=== PATIENT | male | born 1975 | race Hispanic/Latino ===

== ENCOUNTER 2018-08-20 15:57 | Inpatient (IN) | payer MEDICAID ==
[2018-08-20 17:26] LABS: URINE BILIRUBIN NEGATIVE (NEGATIVE); URINE BLOOD NEGATIVE (NEGATIVE); URINE CLARITY CLEAR (Clear); URINE COLOR YELLOW (YELLOW); URINE GLUCOSE (UA) NEG (NEGATIVE); URINE LEUKOCYTE ESTERASE NEG Leu/uL (Negative); URINE PROTEIN NEGATIVE (NEGATIVE); URINE UROBILINOGEN 0.2-1.0 mg/dL (0.2-1.0)
[2018-08-20 17:33] LABS: BASO # 0.1 K/uL (0.0-0.2); BASO % 0.6 % (0.0-2.0); EOS # 0.4 K/uL (0.0-0.7); EOS % 4.6 % (0.0-4.0); LYMPH # 2.2 K/uL (1.0-4.3); LYMPH % 25.4 % (20.0-40.0); MEAN CELL VOLUME 94.8 fl (80.0-94.0); MEAN CORPUSCULAR HEMOGLOBIN 32.4 pg (27.0-31.0); MEAN CORPUSCULAR HGB CONC 34.2 g/dL (33.0-37.0); MEAN PLATELET VOLUME 7.8 fl (7.2-11.7); MONO % 22.9 % (0.0-10.0); NEUT % 46.5 % (50.0-75.0); NRBC % 0.1 % (0.0-0.0); RBC 4.03 Mil/uL (4.40-5.90); RED CELL DISTRIBUTION WIDTH 13.9 % (11.5-14.5); WHITE BLOOD COUNT 8.6 K/uL (4.8-10.8)
[2018-08-20 17:36] LABS: PROTHROMBIN TIME 11.7 Seconds (9.8-13.1)
[2018-08-20] MEDS ORDERED: Piperacillin/Tazobact 4.5 GM in Sodium Chloride 0.9% 100 ML IVPB STA (17:38)
[2018-08-20 17:39] LABS: PARTIAL THROMBOPLASTIN TIME 31.2 Seconds (25.6-37.1)
--- NOTE | 2018-08-20 17:43 | ED PDOC ---
HPI: Male Pain Time Seen by Provider: 08/20/18 16:52 Chief Complaint (Nursing): Male Genitourinary Chief Complaint (Provider): sent to ED for abscess found as outpt Current Symptoms Are (Timing): Still Present Severity: Moderate Quality Of Discomfort: Sharp Associated Symptoms: denies: Fever, Chills Additional Complaint(s): 42yo male c/o pain under his scrotum/ perineum ongoing for about a week and worsening. Saw his urologist Dr Faria from [place] who wrote Rx for CT abd pelvis, performed today as outpatient at [facility] and revealed a supraperineal abscess with gas bubbles. Patient denies fever, weakness, pain w/ urination or defecation. States had abscess to scrotum several years ago but this feels somewhat different. Past Medical History Reviewed: Historical Data, Nursing Documentation, Vital Signs Vital Signs: Last Vital Signs Temp 97.6 F 08/20/18 16:25 Pulse 77 08/20/18 16:25 Resp 18 08/20/18 16:25 BP 121/74 08/20/18 16:25 Pulse Ox 99 08/20/18 16:25 - Medical History PMH: Asthma, Bipolar Disorder, Seizures Denies: Diabetes, Hepatitis, HIV, HTN, Chronic Kidney Disease, Sexually Transmitted Disease Other PMH: partial seizures, bipolar - Surgical History Other surgeries: scrotal abscess - Family History Family History: States: Unknown Family Hx - Living Arrangements Living Arrangements: With Family - Social History Current smoker - smoking cessation education provided: No - Home Medications Home Medications: Ambulatory Orders Medication Instructions Recorded Amoxicillin/Clavulanate [Augmentin 1 tab PO Q12 #20 tab 08/23/18 875 MG-125 MG] RX: Albuterol Sulfate [Ventolin 2 puff IH Q6 PRN #1 hfa.aer.ad 08/23/18 Hfa] RX: Benztropine [Cogentin] 1 mg PO HS #30 tab 08/23/18 RX: Divalproex [Depakote DR] 2,000 mg PO QPM #30 tcp 08/23/18 RX: Ergocalciferol [Drisdol 50,000 50,000 unit PO SUN #8 cap 08/23/18 Intl Units Cap] RX: Fluticasone/Salmeterol 100/50 1 puff IH Q12 #1 puff 08/23/18 [Advair Diskus 100/50] RX: Meloxicam [Mobic] 7.5 mg PO QPM #14 tab 08/23/18 RX: Montelukast [Singulair] 10 mg PO QPM #30 tab 08/23/18 RX: Risperidone [Risperdal] 6 mg PO HS #30 tablet 08/23/18 - Allergies Allergies/Adverse Reactions: Allergies Allergy/AdvReac Type Severity Reaction Status Date / Time No Known Allergies Allergy Verified 08/20/18 16:24 Review of Systems ROS Statement: Except As Marked, All Systems Reviewed And Found Negative Constitutional: Negative for: Fever, Chills Respiratory: Negative for: Cough, Shortness of Breath Gastrointestinal: Positive for: Rectal Pain. Negative for: Vomiting, Abdominal Pain Genitourinary Male: Positive for: Scrotal Pain, Penile Pain. Negative for: Dysuria, Frequency, Hematuria, Penile Discharge Musculoskeletal: Negative for: Neck Pain, Back Pain Skin: Negative for: Rash Neurological: Negative for: Weakness, Numbness, Headache, Dizziness Psych: Negative for: Psychosis, Suicidal ideation Physical Exam - Reviewed Nursing Documentation Reviewed: Yes Vital Signs Reviewed: Yes - Physical Exam Appears: Positive for: Well, Non-toxic, No Acute Distress Head Exam: Positive for: ATRAUMATIC, NORMAL INSPECTION, NORMOCEPHALIC Skin: Positive for: Normal Color, Warm, DRY Eye Exam: Positive for: EOMI, Normal appearance, PERRL ENT: Positive for: Normal ENT Inspection Neck: Positive for: Normal, Painless ROM Cardiovascular/Chest: Positive for: Regular Rate, Rhythm Respiratory: Positive for: CNT, Normal Breath Sounds Gastrointestinal/Abdominal: Positive for: Normal Exam, Soft Male Genital Exam: Positive for: other (perineum +indurated tender mass c/w abscess minimal erythema extending to base scrotum) Back: Positive for: Normal Inspection Extremity: Positive for: Normal ROM Neurologic/Psych: Positive for: Alert, Oriented - Laboratory Results Result Diagrams: 08/22/18 05:55 08/22/18 05:55 - ECG O2 Sat by Pulse Oximetry: 99 Medical Decision Making Medical Decision Making: Discussed w surgery resident for consult Initiate Abx, blood cultures Does not meet SIRS critera based on vitals/presentation. Admit Dr Cross wind operations supervisor medicine CT: Accession No. : [id number] Patient Name / ID : OMAIRA DAVIS S / [id number] Exam Date : 08/20/2018 07:53:07 ( Approved ) Study Comment : Sex / Age : M / 42Y Creator : Govind Hayes MD Dictator : Govind Hayes MD Magnetic Prospecting Supervisor : Computer Typesetter Keyliner : Govind Hayes MD Approver2 : Report Date : 08/20/2018 12:59:51 My Comment : * Date of service: 08/20/2018 PROCEDURE: CT Abdomen and Pelvis with and without intravenous contrast HISTORY: PELVIC PAIN COMPARISON: None. TECHNIQUE: Axial images of the abdomen were obtained in the pre contrast, portal venous and delayed phases of enhancement. Coronal and sagittal reformats were generated. Contrast dose: 99 cc Omnipaque 300 Radiation dose: Total exam DLP = 1841.88 mGy-cm. This CT exam was performed using one or more of the following dose reduction techniques: Automated exposure control, adjustment of the mA and/or kV according to patient size, and/or use of iterative reconstruction technique. FINDINGS: LOWER THORAX: Unremarkable. LIVER: Normal size, contour and attenuation. In the left lobe of the liver there are 2 nonspecific small rounded low-attenuation lesions, 1 in the lateral segment measuring 1.2 cm diameter and 1 in the medial segment measuring 9 mm. Further evaluation with multiphasic contrast-enhanced CT or gadolinium enhanced magnetic resonance imaging is advised. No biliary dilatation GALLBLADDER AND BILE DUCTS: Unremarkable. PANCREAS: Unremarkable. No gross lesion or ductal dilatation. SPLEEN: Unremarkable. ADRENALS: Unremarkable. No mass. KIDNEYS AND URETERS: There are 2 very small nonobstructing right renal calculi, 2-3 mm each, in the mid and lower pole of the right kidney. No mass. No hydronephrosis. VASCULATURE: Unremarkable. No aortic aneurysm. No aortic atherosclerotic calcification or mural plaque present. BOWEL: Unremarkable. No obstruction. No gross mural thickening. APPENDIX: Not identified. No secondary findings to suggest acute PERITONEUM: Appendicitis. LYMPH NODES: Unremarkable. No enlarged lymph nodes. BLADDER: Mildly thickened bladder wall, nonspecific. This may be due to inadequate distention. Correlate with urinalysis to rule out cystitis. REPRODUCTIVE: Normal prostate. BONES: No acute fracture. OTHER FINDINGS: There is an abscess beneath the base of the penis, in the midline extending left parasagittal E in its most inferior extent. It is somewhat irregularly shaped. It measures approximately 2.0 x 3.7 x 4.6 cm and contains fluid and few gas bubbles. This does not clearly extend to the anal rectal complex. It is situated just above the median [place]. IMPRESSION: Supra perineal abscess, 4.6 cm greatest dimension. This is in the midline extending from anterior to the anal rectal complex along the base of the penis and inferiorly to the median [place]. Surgical evaluation is advised. Several nonspecific small low-attenuation hepatic masses. Evaluation with multiphasic contrast-enhanced CT or gadolinium enhanced magnetic resonance imaging is advised. Two very small nonobstructing right renal calculi are noted. No other acute abnormality. The findings were discussed by telephone with Dr. Faria at 1 p.m. on 08/20/2018. -------- admitted, antibiotics initiated and surgery is consulted Disposition - Clinical Impression Clinical Impression: Perineal abscess - Patient ED Disposition Is Patient to be Admitted: Yes Counseled Patient/Family Regarding: Studies Performed, Diagnosis - Disposition Disposition Time: 18:30 Condition: GOOD - Pt Status Changed To: Hospital Disposition Of: Inpatient - Admit Certification Admit to Inpatient:: After my assessment, the patient will require hospitalization for at least two midnights. This is because of the severity of symptoms shown, intensity of services needed, and/or the medical risk in this patient being treated as an outpatient. - POA Present On Arrival: None
[2018-08-20 17:44] LABS: PLATELET COUNT 138 K/uL (130-400)
[2018-08-20 17:45] LABS: ALB/GLOB RATIO 1.1 (1.0-2.1); ALBUMIN 3.6 g/dL (3.5-5.0); ALT/SGPT 22 U/L (21-72); AST/SGOT 19 U/L (17-59); BLOOD UREA NITROGEN 12 mg/dl (9-20); GFR NON-AFRICAN AMERICAN > 60
[2018-08-20] MEDS ORDERED: Sodium Chloride 0.9% 1,000 ML IV STA (17:46)
[2018-08-20] MEDS ORDERED: Vancomycin 1 g Inj ONE (18:00)
[2018-08-20 18:36] LABS: BASOPHIL 1 % (0-2); EOSINOPHIL 4 % (0-7); LYMPHOCYTE 28 % (20-50); MONOCYTE 19 % (0-10); MYELOCYTE 1 % (0-0); NEUTROPHIL 47 % (42-75); TOTAL CELLS COUNTED 100
[2018-08-20 18:37] LABS: PLATELET ESTIMATE NORMAL (NORMAL)
[2018-08-20 18:40] LABS: ANISOCYTOSIS SLIGHT
[2018-08-20] MEDS ORDERED: VANCOMYCIN IVPB SCH (19:45)
[2018-08-20] MEDS ORDERED: PED IVPB SCH (19:45)
--- NOTE | 2018-08-20 20:01 | CP.PCM.CON ---
History of Present Illness - History of Present Illness History of Present Illness: General Surgery: Dr Samayoa PT is a 42M with hx of Bipolar disorder and new diagnosis of seizure disorder (last one 2 days ago). Presents with 1 week history of scrotal and perineal pain. Outside urologist (Dr Giana Saha) sent pt for CT scan today which [id number] 4.6cm abscess from anterior anus to base of the scrotum. PT reports progressive swelling and tenderness, but denies fevers, chlls, nausea, vomiting, dysuria, fecal or urinary incontinence. HAs remote history of single scrotal abscess in past which required I&D, packing and prolonged wound care. Currently reports pain is well controlled. PMH: BPD, unknown seizure disorder PSH: I&D of scrotum NKDA Review of Systems - Review of Systems All systems: reviewed and no additional remarkable complaints except (as per hpi) Past Patient History - Infectious Disease Hx of Infectious Diseases: None - Tetanus Immunizations Tetanus Immunization: Unknown - Past Medical History & Family History Past Medical History?: Yes - Past Social History Smoking Status: Light Smoker < 10 Cigarettes Daily - CARDIAC Hx Hypertension: No - PULMONARY Hx Asthma: Yes - NEUROLOGICAL Hx Seizures: Yes - HEENT Hx HEENT Problems: No - RENAL Hx Chronic Kidney Disease: No - ENDOCRINE/METABOLIC Hx Endocrine Disorders: No - HEMATOLOGICAL/ONCOLOGICAL Hx Human Immunodeficiency Virus (HIV): No - INTEGUMENTARY Hx Dermatological Problems: No - MUSCULOSKELETAL/RHEUMATOLOGICAL Hx Musculoskeletal Disorders: No - GASTROINTESTINAL Hx Gastrointestinal Disorders: (unable to get info) - GENITOURINARY/GYNECOLOGICAL Hx Sexually Transmitted Disorders: No - PSYCHIATRIC Hx Bipolar Disorder: Yes - SURGICAL HISTORY Hx Surgeries: No - ANESTHESIA Hx Anesthesia: No Meds Allergies/Adverse Reactions: Allergies Allergy/AdvReac Type Severity Reaction Status Date / Time No Known Allergies Allergy Verified 08/20/18 16:24 - Medications Medications: Current Medications Piperacillin Sod/Tazobactam (Sod 3.375 gm/ Sodium Chloride) 100 mls @ 100 mls/hr IVPB Q12 MAI; Protocol Vancomycin HCl 1 gm/ Sodium (Chloride) 250 mls @ 166.667 mls/hr IVPB DAILY MAI; Protocol Morphine Sulfate (Morphine) 2 mg IVP Q4 PRN PRN Reason: Pain, Mild (1-3) Physical Exam - Constitutional Appears: Non-toxic, No Acute Distress - Head Exam Head Exam: NORMOCEPHALIC - Eye Exam Eye Exam: Normal appearance - Respiratory Exam Respiratory Exam: absent: Respiratory Distress - Cardiovascular Exam Cardiovascular Exam: REGULAR RHYTHM. absent: Tachycardia - GI/Abdominal Exam GI & Abdominal Exam: Soft. absent: Distended, Firm, Tenderness - Exam Additional comments: left testicle swollen, erythematous, fluctuant, palpable abscess at pass, tender to manipulation, extends to anterior anus no evidence of crepitus, necrosis, no sign of fourniers - Extremities Exam Extremities exam: Negative for: pedal edema - Neurological Exam Neurological exam: Alert, Oriented x3 - Psychiatric Exam Psychiatric exam: Normal Affect, Normal Mood - Skin Skin Exam: Normal Color, Warm Results - Vital Signs Recent Vital Signs: Last Vital Signs Temp 97.6 F 08/20/18 16:25 Pulse 77 08/20/18 16:25 Resp 18 08/20/18 16:25 BP 121/74 08/20/18 16:25 Pulse Ox 99 08/20/18 17:46 - Labs Result Diagrams: 08/20/18 17:27 08/20/18 17:27 Labs: Laboratory Results - last 24 hr 08/20/18 08/20/18 08/20/18 17:08 17:27 17:27 WBC 8.6 RBC 4.03 L Hgb 13.0 D Hct 38.2 MCV 94.8 H MCH 32.4 H MCHC 34.2 RDW 13.9 Plt Count 138 MPV 7.8 Neut % (Auto) 46.5 L Lymph % (Auto) 25.4 [place] % (Auto) 22.9 H Eos % (Auto) 4.6 H Baso % (Auto) 0.6 Neut # (Auto) 4.0 Lymph # (Auto) 2.2 [place] # (Auto) 2.0 H Eos # (Auto) 0.4 Baso # (Auto) 0.1 Neutrophils % (Manual) 47 Lymphocytes % (Manual) 28 Monocytes % (Manual) 19 H Eosinophils % (Manual) 4 Basophils % (Manual) 1 Myelocytes % 1 H Platelet Estimate Normal Anisocytosis (manual) Slight Macrocytosis (manual) Slight PT INR APTT Sodium 137 Potassium 4.7 Chloride 99 Carbon Dioxide 30 Anion Gap 13 BUN 12 Creatinine 0.9 Est GFR ( Amer) > 60 Est GFR (Non-Af Amer) > 60 Random Glucose 130 H Calcium 9.0 Total Bilirubin 0.3 AST 19 ALT 22 Alkaline Phosphatase 48 Total Protein 6.9 Albumin 3.6 Globulin 3.3 Albumin/Globulin Ratio 1.1 Urine Color Yellow Urine Clarity Clear Urine pH 6.0 Ur Specific [place] 1.016 Urine Protein Negative Urine Glucose (UA) Neg Urine Ketones Negative Urine Blood Negative Urine Nitrate Negative Urine Bilirubin Negative Urine Urobilinogen 0.2-1.0 Ur Leukocyte Esterase Neg Urine RBC (Auto) < 1 Urine Microscopic WBC < 1 08/20/18 17:27 WBC RBC Hgb Hct MCV MCH MCHC RDW Plt Count MPV Neut % (Auto) Lymph % (Auto) [place] % (Auto) Eos % (Auto) Baso % (Auto) Neut # (Auto) Lymph # (Auto) [place] # (Auto) Eos # (Auto) Baso # (Auto) Neutrophils % (Manual) Lymphocytes % (Manual) Monocytes % (Manual) Eosinophils % (Manual) Basophils % (Manual) Myelocytes % Platelet Estimate Anisocytosis (manual) Macrocytosis (manual) PT 11.7 INR 1.0 APTT 31.2 Sodium Potassium Chloride Carbon Dioxide Anion Gap BUN Creatinine Est GFR ( Amer) Est GFR (Non-Af Amer) Random Glucose Calcium Total Bilirubin AST ALT Alkaline Phosphatase Total Protein Albumin Globulin Albumin/Globulin Ratio Urine Color Urine Clarity Urine pH Ur Specific [place] Urine Protein Urine Glucose (UA) Urine Ketones Urine Blood Urine Nitrate Urine Bilirubin Urine Urobilinogen Ur Leukocyte Esterase Urine RBC (Auto) Urine Microscopic WBC Assessment & Plan - Assessment and Plan (Free Text) Assessment: 42M with scrotal/perineal abscess Plan: admit to medicine mgmt of comorbidities by primary team NPO @ [facility] IV Abx - vanc/zosyn will plan for I&D in OR tomorrow - time pending d/w Dr Yao Bolton, PGY4
[2018-08-20] MEDS: Piperacillin/Tazobact 3.375 GM in Sodium Chloride 0.9% 100 ML IVPB SCH ×2 (21:00→22:33)
[2018-08-20] MEDS ORDERED: Divalproex 500 mg DR(BID formulation) PO STA (21:07)
[2018-08-21] MEDS: Lactated Ringer's 1,000 ML IV SCH ×2 (00:17→19:06)
[2018-08-21] MEDS ORDERED: Albuterol-Ipratrop 3 mg / 0.5 (3 ml) UD INH STA (00:27)
[2018-08-21] MEDS ORDERED: Albuterol HFA 90 mcg/actuation (8 g) IH PRN (00:53)
[2018-08-21] MEDS: Piperacillin/Tazobact 3.375 GM in Sodium Chloride 0.9% 100 ML IVPB SCH ×4 (01:55→20:20)
--- NOTE | 2018-08-21 06:06 | CARD ---
APPROVED REPORT Date of service: 08/20/2018 EKG Measurement Heart [id number] <Conclusion> Normal sinus rhythm Normal ECG
--- NOTE | 2018-08-21 07:58 | CP.PCM.HP ---
<Eloise Castillo - Last Filed: 08/21/18 08:28> History of Present Illness - History of Present Illness History of Present Illness: 42 yo M with hx of asthma, bipolar disorder, newly diagnosed seizure disorder, admitted to [facility] due to perineal abscess. Pt had 1 week history scrotal and perineal pain, saw his outside urologist Dr. Faria at [place], who sent him for CT. CT showed 4.6 cm abscess from anterior anus to base of scrotum, surgical consultation was advised and pt was admitted. Pt states he had similar episode several years ago. When seen this morning with Dr. Cross, pt reported that using warm compress overnight has been somewhat helpful. ROS: Pain and swelling as above, no fevers, chills, chest pain, issues breathing, issues with urination or stooling, nausea, vomiting In ED, blood cultures taken, received zosyn and vancomycin. EKG showed NSR at 69 bpm. Pt seen this morning PT reports progressive swelling and tenderness, but denies fevers, chlls, nausea, vomiting, dysuria, fecal or urinary incontinence. HAs remote history of single scrotal abscess in past which required I&D, packing and prolonged wound care. Currently reports pain is well controlled. Past Med hx: Bipolar d/o, unknown seizure disorder, asthma Past Surg hx: I&D of scrotum Fam hx: noncontributory Meds: as per med rec NKDA Present on Admission - Present on Admission Any Indicators Present on Admission: No Review of Systems - Review of Systems Review of Systems: as in HPI Past Patient History - Infectious Disease Hx of Infectious Diseases: None - Tetanus Immunizations Tetanus Immunization: Unknown - Past Medical History & Family History Past Medical History?: Yes - Past Social History Smoking Status: Never Smoked - CARDIAC Hx Cardiac Disorders: No - PULMONARY Hx Respiratory Disorders: Yes Hx Asthma: Yes - NEUROLOGICAL Hx Neurological Disorder: Yes Hx Seizures: Yes (Partial Seizures) - HEENT Hx HEENT Problems: No - RENAL Hx Chronic Kidney Disease: No - ENDOCRINE/METABOLIC Hx Endocrine Disorders: No - HEMATOLOGICAL/ONCOLOGICAL Hx Blood Disorders: No - INTEGUMENTARY Hx Dermatological Problems: No - MUSCULOSKELETAL/RHEUMATOLOGICAL Hx Musculoskeletal Disorders: No Hx Falls: No - GASTROINTESTINAL Hx Gastrointestinal Disorders: No - GENITOURINARY/GYNECOLOGICAL Hx Genitourinary Disorders: No - PSYCHIATRIC Hx Psychophysiologic Disorder: Yes Hx Bipolar Disorder: Yes Hx Substance Use: No - SURGICAL HISTORY Hx Surgeries: Yes Other/Comment: Scrotal Abscess - 2 yrs ago - ANESTHESIA Hx Anesthesia: Yes Hx Anesthesia Reactions: No Hx Malignant Hyperthermia: No Has any member of the family had a problem w/ anesthesia?: No Meds Allergies/Adverse Reactions: Allergies Allergy/AdvReac Type Severity Reaction Status Date / Time No Known Allergies Allergy Verified 08/20/18 16:24 Physical Exam - Constitutional Appears: Non-toxic - Head Exam Head Exam: NORMAL INSPECTION - Eye Exam Eye Exam: Normal appearance - ENT Exam ENT Exam: Mucous Membranes Moist - Respiratory Exam Respiratory Exam: Clear to Auscultation Bilateral, NORMAL BREATHING PATTERN - Cardiovascular Exam Cardiovascular Exam: REGULAR RHYTHM - GI/Abdominal Exam GI & Abdominal Exam: Soft - Exam Exam: Scrotal Swelling (perineum tender, some erythema at base of scrotum) Additional comments: examined w/ Dr. Cross - Extremities Exam Extremities exam: Negative for: calf tenderness - Neurological Exam Neurological exam: Alert - Skin Skin Exam: Warm Additional comments: as above Results - Vital Signs Recent Vital Signs: Last Vital Signs Temp 98.6 F 08/21/18 00:49 Pulse 67 08/21/18 00:49 Resp 20 08/21/18 00:49 BP 133/81 08/21/18 00:49 Pulse Ox 98 08/21/18 00:49 - Labs Result Diagrams: 08/20/18 17:27 08/20/18 17:27 Labs: Laboratory Results - last 24 hr 08/20/18 08/20/18 08/20/18 17:08 17:27 17:27 WBC 8.6 RBC 4.03 L Hgb 13.0 D Hct 38.2 MCV 94.8 H MCH 32.4 H MCHC 34.2 RDW 13.9 Plt Count 138 MPV 7.8 Neut % (Auto) 46.5 L Lymph % (Auto) 25.4 [place] % (Auto) 22.9 H Eos % (Auto) 4.6 H Baso % (Auto) 0.6 Neut # (Auto) 4.0 Lymph # (Auto) 2.2 [place] # (Auto) 2.0 H Eos # (Auto) 0.4 Baso # (Auto) 0.1 Neutrophils % (Manual) 47 Lymphocytes % (Manual) 28 Monocytes % (Manual) 19 H Eosinophils % (Manual) 4 Basophils % (Manual) 1 Myelocytes % 1 H Platelet Estimate Normal Anisocytosis (manual) Slight Macrocytosis (manual) Slight PT INR APTT Sodium 137 Potassium 4.7 Chloride 99 Carbon Dioxide 30 Anion Gap 13 BUN 12 Creatinine 0.9 Est GFR ( Amer) > 60 Est GFR (Non-Af Amer) > 60 Random Glucose 130 H Calcium 9.0 Total Bilirubin 0.3 AST 19 ALT 22 Alkaline Phosphatase 48 Total Protein 6.9 Albumin 3.6 Globulin 3.3 Albumin/Globulin Ratio 1.1 Urine Color Yellow Urine Clarity Clear Urine pH 6.0 Ur Specific [place] 1.016 Urine Protein Negative Urine Glucose (UA) Neg Urine Ketones Negative Urine Blood Negative Urine Nitrate Negative Urine Bilirubin Negative Urine Urobilinogen 0.2-1.0 Ur Leukocyte Esterase Neg Urine RBC (Auto) < 1 Urine Microscopic WBC < 1 08/20/18 17:27 WBC RBC Hgb Hct MCV MCH MCHC RDW Plt Count MPV Neut % (Auto) Lymph % (Auto) [place] % (Auto) Eos % (Auto) Baso % (Auto) Neut # (Auto) Lymph # (Auto) [place] # (Auto) Eos # (Auto) Baso # (Auto) Neutrophils % (Manual) Lymphocytes % (Manual) Monocytes % (Manual) Eosinophils % (Manual) Basophils % (Manual) Myelocytes % Platelet Estimate Anisocytosis (manual) Macrocytosis (manual) PT 11.7 INR 1.0 APTT 31.2 Sodium Potassium Chloride Carbon Dioxide Anion Gap BUN Creatinine Est GFR ( Amer) Est GFR (Non-Af Amer) Random Glucose Calcium Total Bilirubin AST ALT Alkaline Phosphatase Total Protein Albumin Globulin Albumin/Globulin Ratio Urine Color Urine Clarity Urine pH Ur Specific [place] Urine Protein Urine Glucose (UA) Urine Ketones Urine Blood Urine Nitrate Urine Bilirubin Urine Urobilinogen Ur Leukocyte Esterase Urine RBC (Auto) Urine Microscopic WBC Assessment & Plan - Assessment and Plan (Free Text) Assessment: 42 yo M with hx asthma, bipolar d/o, seizure disorder, with 1 week swelling perineal/scrotal abscess seen on CT. Plan: - Admitted to med surg - Surgery consulted- recs appreciated; planned for OR today for I&D - Analgesia w/ morphine - Continue with vanco/zosyn - Continue with warm compresses - Continue IV fluids - Follow up results of blood cultures; no leukocytosis, continue to monitor - Resume home medication for seizure disorder (Depakote QPM) - Asthma well controlled; no wheezing or shortness of breath. Resume home meds for asthma (Advair, Montelukast, Albuterol); duonebs PRN - Resume home meds for bipolar d/o (risperdal) - NPO - SCDs Pt seen/examined with Dr. Cross. <Harry Cross - Last Filed: 08/21/18 10:34> Results - Vital Signs Recent Vital Signs: Last Vital Signs Temp 97.9 F 08/21/18 08:32 Pulse 65 08/21/18 08:32 Resp 18 08/21/18 08:32 BP 120/70 08/21/18 08:32 Pulse Ox 95 08/21/18 08:32 - Labs Result Diagrams: 08/20/18 17:27 08/20/18 17:27 Labs: Laboratory Results - last 24 hr 08/20/18 08/20/18 08/20/18 17:08 17:27 17:27 WBC 8.6 RBC 4.03 L Hgb 13.0 D Hct 38.2 MCV 94.8 H MCH 32.4 H MCHC 34.2 RDW 13.9 Plt Count 138 MPV 7.8 Neut % (Auto) 46.5 L Lymph % (Auto) 25.4 [place] % (Auto) 22.9 H Eos % (Auto) 4.6 H Baso % (Auto) 0.6 Neut # (Auto) 4.0 Lymph # (Auto) 2.2 [place] # (Auto) 2.0 H Eos # (Auto) 0.4 Baso # (Auto) 0.1 Neutrophils % (Manual) 47 Lymphocytes % (Manual) 28 Monocytes % (Manual) 19 H Eosinophils % (Manual) 4 Basophils % (Manual) 1 Myelocytes % 1 H Platelet Estimate Normal Anisocytosis (manual) Slight Macrocytosis (manual) Slight PT INR APTT Sodium 137 Potassium 4.7 Chloride 99 Carbon Dioxide 30 Anion Gap 13 BUN 12 Creatinine 0.9 Est GFR ( Amer) > 60 Est GFR (Non-Af Amer) > 60 Random Glucose 130 H Calcium 9.0 Total Bilirubin 0.3 AST 19 ALT 22 Alkaline Phosphatase 48 Total Protein 6.9 Albumin 3.6 Globulin 3.3 Albumin/Globulin Ratio 1.1 Urine Color Yellow Urine Clarity Clear Urine pH 6.0 Ur Specific [place] 1.016 Urine Protein Negative Urine Glucose (UA) Neg Urine Ketones Negative Urine Blood Negative Urine Nitrate Negative Urine Bilirubin Negative Urine Urobilinogen 0.2-1.0 Ur Leukocyte Esterase Neg Urine RBC (Auto) < 1 Urine Microscopic WBC < 1 08/20/18 17:27 WBC RBC Hgb Hct MCV MCH MCHC RDW Plt Count MPV Neut % (Auto) Lymph % (Auto) [place] % (Auto) Eos % (Auto) Baso % (Auto) Neut # (Auto) Lymph # (Auto) [place] # (Auto) Eos # (Auto) Baso # (Auto) Neutrophils % (Manual) Lymphocytes % (Manual) Monocytes % (Manual) Eosinophils % (Manual) Basophils % (Manual) Myelocytes % Platelet Estimate Anisocytosis (manual) Macrocytosis (manual) PT 11.7 INR 1.0 APTT 31.2 Sodium Potassium Chloride Carbon Dioxide Anion Gap BUN Creatinine Est GFR ( Amer) Est GFR (Non-Af Amer) Random Glucose Calcium Total Bilirubin AST ALT Alkaline Phosphatase Total Protein Albumin Globulin Albumin/Globulin Ratio Urine Color Urine Clarity Urine pH Ur Specific [place] Urine Protein Urine Glucose (UA) Urine Ketones Urine Blood Urine Nitrate Urine Bilirubin Urine Urobilinogen Ur Leukocyte Esterase Urine RBC (Auto) Urine Microscopic WBC Assessment & Plan - Assessment and Plan (Free Text) Assessment: Patient was personally seen and examined by me in rounds with residents. Available labs and diagnostic data reviewed. Case, Patient's condition and management plan discussed with residents in rounds. Agree with resident's progress note. Plan: As ordered.
[2018-08-21] MEDS: Fluticasone-Salmeterol 100-50mcg Diskus IH SCH ×2 (08:39→21:37)
[2018-08-21] MEDS ORDERED: Propofol 10 mg/ml Inj (20 ML) ONE (12:49)
[2018-08-21] MEDS ORDERED: Midazolam 2 MG/2 ML VIAL ONE (12:49)
[2018-08-21] MEDS ORDERED: Succinylcholine 200 mg/10 ml Inj IV ONE (12:50)
[2018-08-21] MEDS ORDERED: Sevoflurane - Inhalation Anesthetic Liq (250 ml) ONE ×2 (12:56→13:00)
[2018-08-21] MEDS ORDERED: Lactated Ringer's 1,000 ML IV ONE (13:00)
--- NOTE | 2018-08-21 13:54 | PCM.SURG1 ---
Surgeon's Initial Post Op Note - Surgeon's Notes Surgeon: Dr. Samayoa Tenderizer Tender: Dr. Pike Type of Anesthesia: General LMA Pre-Operative Diagnosis: scrotal abscess Operative Findings: see operative note Post-Operative Diagnosis: same Operation Performed: I&D scrotal abscess Specimen/Specimens Removed: purulent fluid Estimated Blood Loss: EBL {In ML}: 10 Blood Products Given: N/A Drains Used: No Drains Post-Op Condition: Good Date of Surgery/Procedure: 08/21/18 Time of Surgery/Procedure: 13:54
[2018-08-21] MEDS ORDERED: Dexamethasone 4 mg/1 ml IVP PRN (13:55)
--- NOTE | 2018-08-21 14:41 | CP.PCM.CON ---
History of Present Illness - History of Present Illness History of Present Illness: consult requested for hx of bipolar disorder 42 yo M with hx of asthma, previous psychiatric history of bipolar disorder, newly diagnosed seizure disorder, admitted to medical floor floor due to perineal abscess Attempted to evaluate patient,, he has been escorted to surgery will attempt to evaluate patient after post operative recovery Past Patient History - Infectious Disease Hx of Infectious Diseases: None - Tetanus Immunizations Tetanus Immunization: Unknown - Past Medical History & Family History Past Medical History?: Yes - Past Social History Smoking Status: Never Smoked - CARDIAC Hx Cardiac Disorders: No - PULMONARY Hx Respiratory Disorders: Yes Hx Asthma: Yes - NEUROLOGICAL Hx Neurological Disorder: Yes Hx Seizures: Yes (Partial Seizures) - HEENT Hx HEENT Problems: No - RENAL Hx Chronic Kidney Disease: No - ENDOCRINE/METABOLIC Hx Endocrine Disorders: No - HEMATOLOGICAL/ONCOLOGICAL Hx Blood Disorders: No - INTEGUMENTARY Hx Dermatological Problems: No - MUSCULOSKELETAL/RHEUMATOLOGICAL Hx Musculoskeletal Disorders: No Hx Falls: No - GASTROINTESTINAL Hx Gastrointestinal Disorders: No - GENITOURINARY/GYNECOLOGICAL Hx Genitourinary Disorders: No - PSYCHIATRIC Hx Psychophysiologic Disorder: Yes Hx Bipolar Disorder: Yes Hx Substance Use: No - SURGICAL HISTORY Hx Surgeries: Yes Other/Comment: Scrotal Abscess - 2 yrs ago - ANESTHESIA Hx Anesthesia: Yes Hx Anesthesia Reactions: No Hx Malignant Hyperthermia: No Has any member of the family had a problem w/ anesthesia?: No Meds Allergies/Adverse Reactions: Allergies Allergy/AdvReac Type Severity Reaction Status Date / Time No Known Allergies Allergy Verified 08/20/18 16:24 - Medications Medications: Current Medications Albuterol (Ventolin Hfa 90 Mcg/Actuation (8 G)) 2 puff IH Q6 PRN PRN Reason: Shortness of Breath Dexamethasone (Decadron Inj) 4 mg IVP ONCE PRN PRN Reason: Nausea/Vomiting Stop: 08/21/18 15:57 Divalproex Sodium (Depakote Dr(*Bid*)) 2,000 mg PO QPM [facility] Vancomycin HCl 1 gm/ Sodium (Chloride) 250 mls @ 166.667 mls/hr IVPB DAILY [facility]; Protocol Last Admin: 08/21/18 08:41 Dose: 166.667 mls/hr Lactated Ringer's (Lactated Ringer's) 1,000 mls @ 75 mls/hr IV .[id number] [facility]I Last Admin: 08/21/18 00:17 Dose: 75 mls/hr Piperacillin Sod/Tazobactam (Sod 3.375 gm/ Sodium Chloride) 100 mls @ 100 mls/hr IVPB Q6H [facility]; Protocol Last Admin: 08/21/18 14:00 Dose: 100 mls Montelukast Sodium (Singulair) 10 mg PO QPM [facility] Morphine Sulfate (Morphine) 2 mg IVP Q4 PRN PRN Reason: Pain, Mild (1-3) Morphine Sulfate (Morphine) 2 mg IVP Q10M PRN PRN Reason: Pain, severe (8-10) Stop: 08/21/18 15:57 Risperidone (Risperdal Tab) 6 mg PO HS [facility] Last Admin: 08/20/18 21:38 Dose: 6 mg Fluticasone/Salmeterol (Advair Diskus 100/50) 1 puff IH Q12 [facility] Last Admin: 08/21/18 08:39 Dose: 1 puff Results - Vital Signs Recent Vital Signs: Last Vital Signs Temp 97.5 F L 08/21/18 14:25 Pulse 80 08/21/18 14:25 Resp 18 08/21/18 14:25 BP 133/72 08/21/18 14:25 Pulse Ox 95 08/21/18 14:25 - Labs Result Diagrams: 08/20/18 17:27 08/20/18 17:27 Labs: Laboratory Results - last 24 hr 08/20/18 08/20/18 08/20/18 17:08 17:27 17:27 WBC 8.6 RBC 4.03 L Hgb 13.0 D Hct 38.2 MCV 94.8 H MCH 32.4 H MCHC 34.2 RDW 13.9 Plt Count 138 MPV 7.8 Neut % (Auto) 46.5 L Lymph % (Auto) 25.4 Nolan % (Auto) 22.9 H Eos % (Auto) 4.6 H Baso % (Auto) 0.6 Neut # (Auto) 4.0 Lymph # (Auto) 2.2 Nolan # (Auto) 2.0 H Eos # (Auto) 0.4 Baso # (Auto) 0.1 Neutrophils % (Manual) 47 Lymphocytes % (Manual) 28 Monocytes % (Manual) 19 H Eosinophils % (Manual) 4 Basophils % (Manual) 1 Myelocytes % 1 H Platelet Estimate Normal Anisocytosis (manual) Slight Macrocytosis (manual) Slight PT INR APTT Sodium 137 Potassium 4.7 Chloride 99 Carbon Dioxide 30 Anion Gap 13 BUN 12 Creatinine 0.9 Est GFR ( Amer) > 60 Est GFR (Non-Af Amer) > 60 Random Glucose 130 H Calcium 9.0 Total Bilirubin 0.3 AST 19 ALT 22 Alkaline Phosphatase 48 Total Protein 6.9 Albumin 3.6 Globulin 3.3 Albumin/Globulin Ratio 1.1 Urine Color Yellow Urine Clarity Clear Urine pH 6.0 Ur Specific [place] 1.016 Urine Protein Negative Urine Glucose (UA) Neg Urine Ketones Negative Urine Blood Negative Urine Nitrate Negative Urine Bilirubin Negative Urine Urobilinogen 0.2-1.0 Ur Leukocyte Esterase Neg Urine RBC (Auto) < 1 Urine Microscopic WBC < 1 08/20/18 17:27 WBC RBC Hgb Hct MCV MCH MCHC RDW Plt Count MPV Neut % (Auto) Lymph % (Auto) Nolan % (Auto) Eos % (Auto) Baso % (Auto) Neut # (Auto) Lymph # (Auto) Nolan # (Auto) Eos # (Auto) Baso # (Auto) Neutrophils % (Manual) Lymphocytes % (Manual) Monocytes % (Manual) Eosinophils % (Manual) Basophils % (Manual) Myelocytes % Platelet Estimate Anisocytosis (manual) Macrocytosis (manual) PT 11.7 INR 1.0 APTT 31.2 Sodium Potassium Chloride Carbon Dioxide Anion Gap BUN Creatinine Est GFR ( Amer) Est GFR (Non-Af Amer) Random Glucose Calcium Total Bilirubin AST ALT Alkaline Phosphatase Total Protein Albumin Globulin Albumin/Globulin Ratio Urine Color Urine Clarity Urine pH Ur Specific [place] Urine Protein Urine Glucose (UA) Urine Ketones Urine Blood Urine Nitrate Urine Bilirubin Urine Urobilinogen Ur Leukocyte Esterase Urine RBC (Auto) Urine Microscopic WBC
--- NOTE | 2018-08-21 17:59 | CP.PCM.PCO ---
Assessment & Plan - Assessment and Plan (Free Text) Assessment: 42M s/p incision and drainage of scrotal abscess Plan: Patient tolerated procedure with no post operative complications Purulent fluid sent for culture Wound packed with iodoform, remove tomorrow Apply dressings as needed Encourage IS and ambulation use Activity as tolerated Regular diet Continue Antibiotics - change to PO Cleared for discharge from a surgical standpoint D/w Dr. Yao Pike PGY1
[2018-08-21] MEDS: Divalproex 500 mg DR(BID formulation) PO SCH (18:23)
[2018-08-22] MEDS: Piperacillin/Tazobact 3.375 GM in Sodium Chloride 0.9% 100 ML IVPB SCH ×4 (02:40→20:45)
[2018-08-22 06:36] LABS: HEMOGLOBIN 13.5 g/dL (12.0-18.0); MEAN CORPUSCULAR HEMOGLOBIN 32.2 pg (27.0-31.0); MEAN CORPUSCULAR HGB CONC 34.2 g/dL (33.0-37.0); RBC 4.19 Mil/uL (4.40-5.90); RED CELL DISTRIBUTION WIDTH 13.2 % (11.5-14.5); WHITE BLOOD COUNT 9.1 K/uL (4.8-10.8)
[2018-08-22 06:44] LABS: BLOOD UREA NITROGEN 14 mg/dl (9-20); CALCIUM 8.9 mg/dL (8.4-10.2); GFR NON-AFRICAN AMERICAN > 60
[2018-08-22] MEDS: Fluticasone-Salmeterol 100-50mcg Diskus IH SCH ×2 (09:46→20:46)
--- NOTE | 2018-08-22 09:59 | CP.PCM.PN ---
<Eloise Castillo - Last Filed: 08/22/18 09:56> Subjective - Date & Time of Evaluation Date of Evaluation: 08/22/18 Time of Evaluation: 08:25 - Subjective Subjective: Pt seen with Dr. Cross this morning; went to OR for I&D of perineal abscess yesterday. Wound was packed and dressing applied. Pt reports improvement in pain; continues to be able to urinate. Objective - Vital Signs/Intake and Output Vital Signs (last 24 hours): Temp Pulse Resp BP Pulse Ox 97.4 F L 59 L 20 100/66 94 L 08/22/18 08:35 08/22/18 08:35 08/22/18 08:35 08/22/18 08:35 08/22/18 08:35 - Medications Medications: Current Medications Albuterol (Ventolin Hfa 90 Mcg/Actuation (8 G)) 2 puff IH Q6 PRN PRN Reason: Shortness of Breath Divalproex Sodium (Depakote Dr(*Bid*)) 2,000 mg PO QPM [facility] Last Admin: 08/21/18 18:23 Dose: 2,000 mg Vancomycin HCl 1 gm/ Sodium (Chloride) 250 mls @ 166.667 mls/hr IVPB DAILY [facility]; Protocol Last Admin: 08/22/18 09:46 Dose: 166.667 mls/hr Lactated Ringer's (Lactated Ringer's) 1,000 mls @ 75 mls/hr IV .[id number] [facility] Last Admin: 08/21/18 19:06 Dose: Not Given Piperacillin Sod/Tazobactam (Sod 3.375 gm/ Sodium Chloride) 100 mls @ 100 mls/hr IVPB Q6H [facility]; Protocol Last Admin: 08/22/18 09:47 Dose: 100 mls/hr Montelukast Sodium (Singulair) 10 mg PO QPM [facility] Last Admin: 08/21/18 18:25 Dose: 10 mg Morphine Sulfate (Morphine) 2 mg IVP Q4 PRN PRN Reason: Pain, Mild (1-3) Risperidone (Risperdal Tab) 6 mg PO HS [facility] Last Admin: 08/21/18 21:37 Dose: 6 mg Fluticasone/Salmeterol (Advair Diskus 100/50) 1 puff IH Q12 [facility] Last Admin: 12/20/18 09:46 Dose: 1 puff - Labs Labs: 08/22/18 05:55 08/22/18 05:55 PT 11.7 Seconds (9.8-13.1) 08/20/18 17:27 INR 1.0 08/20/18 17:27 APTT 31.2 Seconds (25.6-37.1) 08/20/18 17:27 - Constitutional Appears: No Acute Distress - Respiratory Exam Respiratory Exam: NORMAL BREATHING PATTERN. absent: Respiratory Distress - Cardiovascular Exam Cardiovascular Exam: REGULAR RHYTHM - GI/Abdominal Exam GI & Abdominal Exam: Soft - Exam Exam: Scrotal Swelling Additional comments: examined w/ Dr. Cross. Perineal incision at base of scrotum; with packing; mild serosanginous drainage - Extremities Exam Extremities Exam: absent: Calf Tenderness - Neurological Exam Neurological Exam: Alert Assessment and Plan - Assessment and Plan (Free Text) Assessment: 42 yo M with hx asthma, bipolar d/o, seizure disorder, with 1 week swelling perineal/scrotal abscess seen on CT. S/p I&D yesterday. Plan: - Surgery consulted- Dr. Samayoa; s/p I&D - F/u wound cultures - Continue analgesia, antibiotics - Follow up results of blood culture - Continue home medication for seizure disorder (Depakote QPM), asthma (Advair, Montelukast, Albuterol); duonebs PRN, bipolar d/o (risperdal) - Diet - regular diet - Encourage incentive spirometry - SCDs <Harry Cross - Last Filed: 08/27/18 18:36> Objective - Vital Signs/Intake and Output Vital Signs (last 24 hours): Temp Pulse Resp BP Pulse Ox 97.2 F L 54 L 18 108/68 99 08/23/18 08:06 08/23/18 08:06 08/23/18 08:06 08/23/18 08:06 08/24/18 15:53 - Labs Labs: 08/22/18 05:55 08/22/18 05:55 PT 11.7 Seconds (9.8-13.1) 08/20/18 17:27 INR 1.0 08/20/18 17:27 APTT 31.2 Seconds (25.6-37.1) 08/20/18 17:27 Assessment and Plan - Assessment and Plan (Free Text) Plan: Patient was personally seen and examined by me in rounds with residents. Available labs and diagnostic data reviewed. Case, Patient's condition and management plan discussed with residents in rounds . Agree with resident's progress note. Plan: As ordered.
[2018-08-22 16:16] VITALS: RESP 18
[2018-08-22] MEDS: Divalproex 500 mg DR(BID formulation) PO SCH (18:43)
[2018-08-23] MEDS: Piperacillin/Tazobact 3.375 GM in Sodium Chloride 0.9% 100 ML IVPB SCH ×2 (02:39→08:40)
[2018-08-23] MEDS: Lactated Ringer's 1,000 ML IV SCH (05:26)
[2018-08-23 08:07] VITALS: BP 108/68; PULSE 54; TEMP 97.2
[2018-08-23] MEDS: Fluticasone-Salmeterol 100-50mcg Diskus IH SCH (08:41)
--- NOTE | 2018-08-23 12:36 | CP.PCM.DIS ---
Provider - Provider Date of Admission: 08/20/18 17:39 Attending physician: Harry Cross MD Primary care physician: Dr. Friedman Consults: 08/20/18 19:42 General Surgery Consult Stat Comment: perineal abscess Consulting Provider: Trent Samayoa Consulting Physician: Trent Samayoa Reason for Consult: perineal abscess 08/21/18 11:58 Psychiatry Consult Routine Comment: Consulting Provider: Brigido Iglesias Consulting Physician: Brigido Iglesias Reason for Consult: Bipolar disorder Time Spent in preparation of Discharge (in minutes): 30 Diagnosis - Discharge Diagnosis (1) Bipolar disorder Status: Chronic (2) Scrotal abscess Status: Acute (3) Asthma Status: Chronic Hospital Course - Lab Results Lab Results: Micro Results 08/21/18 15:00 Scrotum Gram Stain - Final 08/20/18 20:30 Blood-Venous Blood Culture - Preliminary NO GROWTH AFTER 48 HOURS 08/20/18 18:00 Blood-Venous Blood Culture - Preliminary NO GROWTH AFTER 48 HOURS Most Recent Lab Values WBC 9.1 K/uL (4.8-10.8) 08/22/18 05:55 RBC 4.19 Mil/uL (4.40-5.90) L 08/22/18 05:55 Hgb 13.5 g/dL (12.0-18.0) 08/22/18 05:55 Hct 39.4 % (35.0-51.0) 08/22/18 05:55 MCV 94.0 fl (80.0-94.0) 08/22/18 05:55 MCH 32.2 pg (27.0-31.0) H 08/22/18 05:55 MCHC 34.2 g/dL (33.0-37.0) 08/22/18 05:55 RDW 13.2 % (11.5-14.5) 08/22/18 05:55 Plt Count 143 K/uL (130-400) 08/22/18 05:55 MPV 7.8 fl (7.2-11.7) 08/20/18 17:27 Neut % (Auto) 46.5 % (50.0-75.0) L 08/20/18 17:27 Lymph % (Auto) 25.4 % (20.0-40.0) 08/20/18 17:27 Bibb % (Auto) 22.9 % (0.0-10.0) H 08/20/18 17:27 Eos % (Auto) 4.6 % (0.0-4.0) H 08/20/18 17:27 Baso % (Auto) 0.6 % (0.0-2.0) 08/20/18 17:27 Neut # (Auto) 4.0 K/uL (1.8-7.0) 08/20/18 17:27 Lymph # (Auto) 2.2 K/uL (1.0-4.3) 08/20/18 17:27 Bibb # (Auto) 2.0 K/uL (0.0-0.8) H 08/20/18 17:27 Eos # (Auto) 0.4 K/uL (0.0-0.7) 08/20/18 17:27 Baso # (Auto) 0.1 K/uL (0.0-0.2) 08/20/18 17:27 Neutrophils % (Manual) 47 % (42-75) 08/20/18 17:27 Lymphocytes % (Manual) 28 % (20-50) 08/20/18 17:27 Monocytes % (Manual) 19 % (0-10) H 08/20/18 17:27 Eosinophils % (Manual) 4 % (0-7) 08/20/18 17:27 Basophils % (Manual) 1 % (0-2) 08/20/18 17:27 Myelocytes % 1 % (0-0) H 08/20/18 17:27 Platelet Estimate Normal (NORMAL) 08/20/18 17: Anisocytosis (manual) Slight 08/20/18 17:27 Macrocytosis (manual) Slight 08/20/18 17:27 PT 11.7 Seconds (9.8-13.1) 08/20/18 17: INR 1.0 08/20/18 17: APTT 31.2 Seconds (25.6-37.1) 08/20/18 17:27 Sodium 138 mmol/l (132-148) 08/22/18 05:55 Potassium 4.3 MMOL/L (3.6-5.0) 08/22/18 05:55 Chloride 103 mmol/L (98-107) 08/22/18 05:55 Carbon Dioxide 25 mmol/L (22-30) 08/22/18 05:55 Anion Gap 14 (10-20) 08/22/18 05:55 BUN 14 mg/dl (9-20) 08/22/18 05:55 Creatinine 0.6 mg/dl (0.8-1.5) L 08/22/18 05:55 Est GFR ( Amer) > 60 08/22/18 05:55 Est GFR (Non-Af Amer) > 60 08/22/18 05:55 Random Glucose 151 mg/dL (75-110) H 08/22/18 05:55 Calcium 8.9 mg/dL (8.4-10.2) 08/22/18 05:55 Total Bilirubin 0.3 mg/dl (0.2-1.3) 08/20/18 17:27 AST 19 U/L (17-59) 08/20/18 17:27 ALT 22 U/L (21-72) 08/20/18 17:27 Alkaline Phosphatase 48 U/L (38-126) 08/20/18 17:27 Total Protein 6.9 G/DL (6.3-8.2) 08/20/18 17:27 Albumin 3.6 g/dL (3.5-5.0) 08/20/18 17:27 Globulin 3.3 gm/dL (2.2-3.9) 08/20/18 17:27 Albumin/Globulin Ratio 1.1 (1.0-2.1) 08/20/18 17:27 Urine Color Yellow (YELLOW) 08/20/18 17:08 Urine Clarity Clear (Clear) 08/20/18 17:08 Urine pH 6.0 (5.0-8.0) 08/20/18 17:08 Ur Specific [place] 1.016 (1.003-1.030) 08/20/18 17:08 Urine Protein Negative mg/dL (NEGATIVE) 08/20/18 17:08 Urine Glucose (UA) Neg mg/dL (NEGATIVE) 08/20/18 17:08 Urine Ketones Negative mg/dL (NEGATIVE) 08/20/18 17:08 Urine Blood Negative (NEGATIVE) 08/20/18 17:08 Urine Nitrate Negative (NEGATIVE) 08/20/18 17:08 Urine Bilirubin Negative (NEGATIVE) 08/20/18 17:08 Urine Urobilinogen 0.2-1.0 mg/dL (0.2-1.0) 08/20/18 17:08 Ur Leukocyte Esterase Neg Yaw/uL (Negative) 08/20/18 17:08 Urine RBC (Auto) < 1 /hpf (0-3) 08/20/18 17:08 Urine Microscopic WBC < 1 /hpf (0-5) 08/20/18 17:08 - Hospital Course Hospital Course: 42 yo M with hx of asthma, bipolar disorder, newly diagnosed seizure disorder, admitted to [facility] floor due to perineal abscess. Pt had 1 week history scrotal and perineal pain, saw his outside urologist Dr. Faria at [place], who sent him for CT. CT showed 4.6 cm abscess from anterior anus to base of scrotum, surgical consultation was advised and pt was admitted. Pt states he had similar episode several years ago. Blood cultures were taken and he was started on vancomycin and zosyn. He was evaluated by general surgery- Dr. Samayoa - taken to OR for I&D, packing placed, then removed by surgery the following day. Pt reported alleviation of pain/discomfort after I&D. So far blood cultures have been neg, and wound culture gram stain shows no organisms. His post-op course has been unremarkable, and he has been cleared for discharge from surgical standpoint. He was seen and eval this am with Dr. Cross. No acute events overnight, reports he feels well. Able to urinate, denies pain. He is stable for d/c today with outpatient follow up with private urologist, as well as surgeon Dr. Samayoa and PMD within 1 week. To be d/c with PO augmentin 875mg-125mg BID x 10 days. Discussed plan with patient- he verbalized understanding and agreement. Discharge Exam - Head Exam Head Exam: NORMAL INSPECTION - Eye Exam Eye Exam: Normal appearance - Respiratory Exam Respiratory Exam: Respiratory Distress, NORMAL BREATHING PATTERN, UNREMARKABLE - Cardiovascular Exam Cardiovascular Exam: REGULAR RHYTHM - GI/Abdominal Exam GI & Abdominal Exam: Soft - Neurological Exam Neurological exam: Alert, Oriented x3 - Skin Skin Exam: Dry, Warm Discharge Plan - Discharge Medications Prescriptions: Albuterol Sulfate [Ventolin Hfa] 2 puff IH Q6 PRN #1 hfa.aer.ad PRN Reason: Shortness Of Breath Amoxicillin/Clavulanate [Augmentin 875 MG-125 MG] 1 tab PO Q12 #20 tab Benztropine [Cogentin] 1 mg PO HS #30 tab Divalproex [Depakote DR] 2,000 mg PO QPM #30 tcp Ergocalciferol [Drisdol 50,000 Intl Units Cap] 50,000 unit PO SUN #8 cap Fluticasone/Salmeterol 100/50 [Advair Diskus 100/50] 1 puff IH Q12 #1 puff Meloxicam [Mobic] 7.5 mg PO QPM #14 tab Montelukast [Singulair] 10 mg PO QPM #30 tab Risperidone [Risperdal] 6 mg PO HS #30 tablet - Follow Up Plan Condition: GOOD Disposition: HOME/ ROUTINE Instructions: Abscess Incision and Drainage (DC) Additional Instructions: Please follow up with your surgeon, Dr. Samayoa, in 1 week. Remove packing 24 hours after surgery. Apply dressings as needed. Keep area clean and dry. Incision will heal by secondary intention. Over the counter Tylenol and Motrin for pain. Do not take Motrin on an empty stomach. Okay to shower. Resume all home medications. Activity as tolerated. If symptoms worsen, please return to the ED. Referrals: [facility], [facility] [Other] - 09/20/18 11:40 am (Initial consult with Dr. Hermelinda Arthur) Brigido Iglesias MD [Medical Doctor] - Trent Samayoa MD [Staff Provider] - Shaun Friedman DPM [Family Provider] -
--- NOTE | 2018-08-23 14:26 | CP.PCM.CON ---
History of Present Illness - History of Present Illness History of Present Illness: 42 yo M with hx of asthma, previous psychiatric history of bipolar disorder, newly diagnosed seizure disorder, admitted to medical floor floor due to perineal abscess pt on evaluation, cooperative , good eye contact reported mood is fine affect appropriate, thought form coherent, speech normal, denied any current perceptual disturbances, non elicited, denied suicidal or homicidal ideation, no changes in sleep or appetite alert awake ox3 Past Patient History - Infectious Disease Hx of Infectious Diseases: None - Tetanus Immunizations Tetanus Immunization: Unknown - Past Medical History & Family History Past Medical History?: Yes - Past Social History Smoking Status: Never Smoked - CARDIAC Hx Cardiac Disorders: No - PULMONARY Hx Respiratory Disorders: Yes Hx Asthma: Yes - NEUROLOGICAL Hx Neurological Disorder: Yes Hx Seizures: Yes (Partial Seizures) - HEENT Hx HEENT Problems: No - RENAL Hx Chronic Kidney Disease: No - ENDOCRINE/METABOLIC Hx Endocrine Disorders: No - HEMATOLOGICAL/ONCOLOGICAL Hx Blood Disorders: No - INTEGUMENTARY Hx Dermatological Problems: No - MUSCULOSKELETAL/RHEUMATOLOGICAL Hx Musculoskeletal Disorders: No Hx Falls: No - GASTROINTESTINAL Hx Gastrointestinal Disorders: No - GENITOURINARY/GYNECOLOGICAL Hx Genitourinary Disorders: No - PSYCHIATRIC Hx Psychophysiologic Disorder: Yes Hx Bipolar Disorder: Yes Hx Substance Use: No - SURGICAL HISTORY Hx Surgeries: Yes Other/Comment: Scrotal Abscess - 2 yrs ago - ANESTHESIA Hx Anesthesia: Yes Hx Anesthesia Reactions: No Hx Malignant Hyperthermia: No Has any member of the family had a problem w/ anesthesia?: No Meds Home Medications: Home Medication List Medication Instructions Recorded Confirmed Type Albuterol Sulfate [Ventolin Hfa] 2 puff IH Q6 PRN #1 hfa.aer.ad 08/23/18 Rx Amoxicillin/Clavulanate [Augmentin 1 tab PO Q12 #20 tab 08/23/18 Rx 875 MG-125 MG] Benztropine [Cogentin] 1 mg PO HS #30 tab 08/23/18 Rx Divalproex [Depakote DR] 2,000 mg PO QPM #30 tcp 08/23/18 Rx Ergocalciferol [Drisdol 50,000 50,000 unit PO SUN #8 cap 08/23/18 Rx Intl Units Cap] Fluticasone/Salmeterol 100/50 1 puff IH Q12 #1 puff 08/23/18 Rx [Advair Diskus 100/50] Meloxicam [Mobic] 7.5 mg PO QPM #14 tab 08/23/18 Rx Montelukast [Singulair] 10 mg PO QPM #30 tab 08/23/18 Rx Risperidone [Risperdal] 6 mg PO HS #30 tablet 08/23/18 Rx Allergies/Adverse Reactions: Allergies Allergy/AdvReac Type Severity Reaction Status Date / Time No Known Allergies Allergy Verified 08/20/18 16:24 Results - Vital Signs Recent Vital Signs: Last Vital Signs Temp 97.2 F L 08/23/18 08:06 Pulse 54 L 08/23/18 08:06 Resp 18 08/23/18 08:06 BP 108/68 08/23/18 08:06 Pulse Ox 96 08/23/18 08:06 - Labs Result Diagrams: 08/22/18 05:55 08/22/18 05:55 Assessment & Plan - Assessment and Plan (Free Text) Assessment: bipolar I disorder Plan: pt at current mental status stable, denied suicidal or homicidal ideation denied perceptual disturbances, pt psychiatrically cleared for discharge upon medical clearance continue with current dose of risperidone, cogentin and depakote
[2018-08-24 15:53] VITALS: O2SAT 99
--- NOTE | 2018-08-26 22:32 | OP ---
PROCEDURE DATE: 08/21/2018 SURGEON: Trent Samayoa MD [employer] MACHINE OPERATOR: Dr. Pike ANESTHESIA: General. ANESTHESIOLOGIST: Dr. Harris PREOPERATIVE DIAGNOSIS: Right scrotal abscess. POSTOPERATIVE DIAGNOSIS: Right scrotal abscess. PROCEDURE: Incision and drainage of scrotal hernial abscess. DESCRIPTION OF OPERATION: The patient was anesthetized and placed in the lithotomy position. The perineum was prepped and draped in the usual sterile manner. The patient was noted to have a one end rounded fluctuant area swelling at the base of the scrotum to the right of the midline close to the junction with the perineum. Rectal examination was performed under anesthesia with no evidence of rectal involvement and no perirectal swelling noted. An incision was made into the fluctuant mass with drainage of a moderate amount of blood, cultures were taken. The cavity was explored and noted to extend primarily, anteriorly into the area of the scrotum and the cavity was irrigated and a small amount of iodoform packing was placed followed by a dry sterile dressing. The patient tolerated the procedure well and transferred to the recovery room in stable condition. Estimated blood loss for the procedure was 10 mL. Trent Samayoa MD
--- NOTE | 2018-09-04 15:19 | PQF ---
PROVIDER RESPONSE TEXT: Moderate persistent REVIEWER QUERY TEXT: Asthma Specificity and Type Asthma is documented in the Medical Record. Please specify the type and severity of asthma. Such as: -- Mild intermittent -- Mild persistent -- Moderate persistent -- Severe persistent -- Exercise induced bronchospasm -- Cough variant asthma -- Other, please specify -- Unable to determine The patient's Clinical Indicators include: Documentation of history of Asthma controlled. Resume home medications; Advair, Montelukast, Albuterol and Duonebs prn Query created by: Shira Jeffers on 08/21/2018 9:21 AM Electronically signed by: Harry Cross 09/04/2018 3:15 PM
== END 2018-08-23 14:14 | disposition home or self-care (01) | DRG 278 ==
LOC: H.ER 15:57 → H.ERHOLD 17:39 → H.MEDSURG1 20:29
PROVIDERS: ADMIT Internal Medicine; ATTEND Internal Medicine
PROC: 0V953ZZ Drainage of Scrotum, Percutaneous Approach (ICD-10-PCS; principal; 2018-08-21 12:00)
DX: L02.215 Cutaneous abscess of perineum (principal); N49.2 Inflammatory disorders of scrotum; G40.909 Epilepsy, unspecified, not intractable, without status epilepticus; F31.9 Bipolar disorder, unspecified; F17.210 Nicotine dependence, cigarettes, uncomplicated; N20.0 Calculus of kidney; J45.40 Moderate persistent asthma, uncomplicated